=== PATIENT | female | born 1980 | race Two or more races ===

== ENCOUNTER 2019-12-06 15:36 | Emergency (ER) | payer OTHER ==
[~2019-12-06] VITALS: Ht 162.6 cm; Wt 52.2 kg
--- NOTE | 2019-12-06 15:51 | NUR ---
Dr. Hess at bedside for MSE
[2019-12-06] MEDS ORDERED: MECLIZINE HCL 25 MG TABLET PO ONE (16:00)
[2019-12-06] MEDS ORDERED: IV NORMAL SALINE 1000 ML BAG IV ONE (16:00)
[2019-12-06] MEDS ORDERED: MECLIZINE HCL 25 MG TABLET ONE (16:24)
[2019-12-06 16:25] LABS: BASOPHILS % (AUTO) 0.4 % (0.0-2.0); CREATININE 0.9 mg/dL (0.6-1.3); EOSINOPHILS % (AUTO) 0.4 % (0.0-7.0); HEMATOCRIT 40.2 % (31.2-41.9); HEMOGLOBIN 13.7 g/dL (10.9-14.3); LYMPHOCYTES % (AUTO) 15.2 % (20.5-51.5); MEAN CORPUSCULAR HEMOGLOBIN 30.7 uug (24.7-32.8); MEAN CORPUSCULAR HGB CONC 34 g/dL (32.3-35.6); MEAN CORPUSCULAR VOLUME 89.7 fL (75.5-95.3); MONOCYTES # (AUTO) 0.6 K/uL (2.0-10.0); MONOCYTES % (AUTO) 9.3 % (0.0-11.0); NEUTROPHILS # (AUTO) 4.7 K/uL (1.8-8.9); NEUTROPHILS % (AUTO) 74.7 % (38.5-71.5); PLATELET COUNT (AUTO) 173 K/uL (179-408); POTASSIUM 3.4 mmol/L (3.5-5.1); RED BLOOD CELL COUNT(AUTO) 4.48 MIL/uL (3.63-4.92); WHITE BLOOD COUNT (AUTO) 6.3 K/uL (3.8-11.8)
[2019-12-06 16:40] LABS: BILIRUBIN,DIRECT 0.1 mg/dL (0.0-0.2); BILIRUBIN,TOTAL 0.6 mg/dL (0.2-1.0); TOTAL PROTEIN, SERUM 8.3 g/dL (6.4-8.2)
--- NOTE | 2019-12-06 17:43 | NUR ---
IV removed. Catheter intact and site benign. Pressure and 4x4 gauze applied to site. No bleeding noted. Patient discharged to home in stable condition. Written and verbal after care instructions given. Patient verbalizes understanding of instructions. Stressed follow up or return to ER for worsening s/s. Patient ambulated with steady gait. Deniesa ny pain or discomfort. NAD noted
[2019-12-06 18:26] VITALS: BP 119/82
== END 2019-12-06 17:43 | disposition home or self-care (01) ==
LOC: ER 15:39
DX: H81.10 Benign paroxysmal vertigo, unspecified ear (principal); D69.6 Thrombocytopenia, unspecified; E87.6 Hypokalemia; I45.10 Unspecified right bundle-branch block; R03.0 Elevated blood-pressure reading, without diagnosis of hypertension; R94.02 Abnormal brain scan
CPT/HCPCS: 36415; 70030-TC; 70450; 71045; 85025; 93005; A4663; J7030; J8597